=== PATIENT | female | born 1995 | race African-American/Black ===

== ENCOUNTER 2019-09-08 10:30 | Outpatient (RCR) | payer OTHER, SELFPAY ==
--- NOTE | 2019-09-01 10:08 | PT.OIE ---
Current Diagnoses Pelvic and perineal pain (08/26/19) Visit Care Team Role Provider Type Magui Murillo Primary Care Provider Non-Staff Specialty: Medical Address: [address], [place], [address] Email: Cortney Small MD Attending Provider Non-Staff Referring Provider Specialty: Medical Address: [facility] [address], [place], [address] Email: Physical Therapy Initial Evaluation PT-OP-A Visit Information Start: 08/26/19 11:01 Freq: Status: Active Protocol: Document 08/26/19 11:08 [facility] (Rec: 08/26/19 11:37 [facility] [id number]) Out-Patient Physical Therapy Visit Information Visit Information Visit Type Initial Evaluation Visit Start Time 11:15 Visit Stop Time 12:00 Total Visit Minutes 45 Visit Number 1 Evaluation Information Evaluation Date 08/26/19 PT-OP-B Current Condition Start: 08/26/19 11:01 Freq: Status: Active Protocol: Document 08/26/19 11:08 [facility] (Rec: 08/26/19 11:37 [facility] [id number]) Current Condition History of Current Condition Onset Date 3 years ago Current Complaints pelvic and abdominal pain History of Current Condition Pain started in the abdomen and then moved to the pelvic floor. Kary describes the feeling your get when you do sit ups it gets crampy daily, sharp pains come on a few times a day across the front of the pelvis. [place] makes symptoms worse. Kary reports she will have spasms following intercourse. Patient also reports she has nausea as well and wakes up nauseous. She will sometimes throw up one time per week. Some loss of urine with sneezing but not all the time. If she tries to run she will have muscle spasms the next few days in her pelvic floor. She describes frequent need to void and voids almost every hour. She wakes 4 times per night to void. The bladder frequency seems more recent. Pt reports she gets cramps after she voids. Sometimes it is more difficult to void due to cramps. Had a IUD taken out he end of April, she had it in for 6 months. The IUD was in the wrong spot and irritated her tissues. Prior Treatments and Tests laproscopy done last September and everything looked normal. Treatment Goals Patient/Caregiver Goals Would like to be able to return to a more active lifestyle and running two miles without having pain and cramping following. PT-OP-C Subjective Start: 08/26/19 11:01 Freq: Status: Active Protocol: Document 08/26/19 11:08 [facility] (Rec: 09/01/19 10:06 [facility] [id number]) Patient Questionnaires Pelvic Pain and Urgency/Frequency Patient Symptom Scale Pelvic Pain Score 26 OP-PT Pain Assessment Pain Assessment Grid Paper Pain Assessment Grid Completed Yes Location anterior pelvis and pelvic floor Intensity 6 Scale Used Numeric (1 - 10) across the low back Pain Location Details across the low back Intensity 4 Scale Used Numeric (1 - 10) abdominal wall Intensity 4 Scale Used Numeric (1 - 10) PT-OP-I Pelvic Floor Start: 08/26/19 11:01 Freq: Status: Active Protocol: Document 08/26/19 11:08 [facility] (Rec: 09/01/19 10:06 [facility] [id number]) Pelvic Floor Assessment Urine Pelvic Floor Surgery No Urinary Symptoms Urge Sensation,Falling Out Feeling/Heavy Other Urinary Symptoms nocturia Leakage Size Small Leakage Cause Cough Voiding Frequency 20 times per day Nocturia 4 times Pelvic Clock Pelvic Clock 12-3 Guarding,Tenderness Pelvic Clock 3-6 Guarding,Tenderness Pelvic Clock 6-9 Hypertonic,Tenderness Pelvic Clock 9-12 Hypertonic,Tenderness Pelvic Clock Other pt is guarded at rest and when asked to perform a pelvic floor contraction she has difficulty relaxing following, tenderness with all palpations PT-OP-J Posture/Palpation/Skin Start: 08/26/19 11:01 Freq: Status: Active Protocol: Document 08/26/19 11:08 [facility] (Rec: 09/01/19 10:06 [facility] [id number]) Palpation Assessment Location anterior abdominal fascia Palpation Location anterior abdominal fascia Palpation Findings Soft Tissue Tightness,Muscle Guarding Palpation Details myofascial tightness throuhout the anterior abdominal fascia and suprapubic fascia. Decreased bladder visceral mobility PT-OP-K Range of Motion Start: 09/01/19 10:06 Freq: Status: Active Protocol: Document 08/26/19 11:08 [facility] (Rec: 09/01/19 10:08 [facility] [id number]) Lumbar Spine Range of Motion Lumbar Spine Active Extension 10 ROM Limitations Soft Tissue Tightness Comments limitations with lumbar extension in the prone position due to tightness across the abdominal wall PT-OP-Q Treatments Start: 08/26/19 11:01 Freq: Status: Active Protocol: Document 08/26/19 18:25 [facility] (Rec: 08/27/19 18:26 [facility] [id number]) Therapeutic Exercises Supine Exercises 1 Supine Exercise Name modified squat stretch Side bilateral Reps/Minutes hold x 1 minute Prone Exercises 1 Prone Exercise Name cobra stretch Side bilateral Sitting Exercises 1 Sitting Exercise Name Sitting education on sitting on ischial tuberositites with relaxing gluteal PT-OP-T Assessment and Plan Start: 08/26/19 11:01 Freq: Status: Active Protocol: Document 08/26/19 11:08 [facility] (Rec: 09/01/19 10:06 [facility] [id number]) Physical Therapy Assessment Rehab Potential Rehabilitation Potential Excellent Evaluation Complexity Number of Personal Factors/Comorbidities 0 Number of Body Systems Impaired 1-2 Clinical Presentation at Evaluation Stable Impairments Impairments Activity Tolerance,Functional Activities,Pain,Soft Tissue Mobility,Tone Goals Four Impairment pelvic pain with sitting that limits sitting duration to less than 30 min Deck Mate Goal (LTG) Kary is able to increase her sitting tolerance to 60 minutes or greater without increased c/o pain and heaviness in the pelvic floor LTG Duration 8 weeks Three Impairment hypertonicity of the levator ani Short Term Goal (STG) Kary is educated on relaxed awareness of the pelvic floor and is able to tolerate the vaginal sensor for EMG biofeedback down training STG Duration 4 weeks Alf Goal (LTG) Kary is able to relax her pelvic floor to 1-2 uv at rest using EMG biofeedback Two Impairment pelvic and abdominal pain Deck Mate Goal (LTG) Kary is able to reduce pelvic pain from 6/10 to 2-3/ 10 and has reduced complaints of abdominal pain and cramping from 4/10 to 1-2/10 LTG Duration 8 weeks One Impairment urinary urgency and frequency voiding > 20 xms per day and 4 xms at night Short Term Goal (STG) Kary is educated in the urge deference technique and bladder retraining to begin increasing the time between voids STG Duration 3 weeks Alf Goal (LTG) Kary is able to increase her voiding duration to every 2 hours throughout the day and is only waking 1 time per night to void LTG Duration 8 weeks Assessment Summary Assessment Kary presents to physical therapy today with symptoms of pelvic pain and urgency/ frequency to void. She reports voiding greater than 20 times per day and wakes up 4 times per night to void. She describes an achey cramping feeling across her abdominal wall rated 4-5/10 and pelvic pain symptoms rated 6/ 10. With examination today Kary is extremely tight in her abdominal wall and suprapubic region. She is guarded throughout her levator ani with the greatest region of tightness in the illiococcygeus and coccygeus musculature. We started with stretches for the pelvic floor and abdominal wall today . Kary will benefit from PT addressing abdominal wall tightness, suprapubic fascial tightness and pelvic floor tightness. Treatment will include down training for the levator ani using EMG biofeedback, relaxed awareness of the pelvic floor, manual therapy techniques to release tension, yoga for pelvic pain and stretches for the abdominal wall, and diaphragmatic breathing techniques. Physical Therapy Plan Frequency and Duration Frequency of Treatment 1x/Week Duration of Treatment 8 Plan of Care Start Date 08/26/19 Plan of Care End Date 10/21/19 Therapeutic Interventions Therapeutic Interventions Home Exercise Program,Manual Therapy,Neuromuscular Re- education,Patient/Caregiver Education,Self-Care/Home Management,Soft Tissue Mobilization,Therapeutic Exercises Modalities Biofeedback Next Visit Focus/Plan Next Note Type Treatment Note Next Visit Plan Begin EMG biofeedback for down training and relaxed awareness of the pelvic floor musculature
--- NOTE | 2019-09-01 10:09 | PT.OPPOC ---
Physical, Occupational & Speech Therapy At [facility] Current Diagnoses Pelvic and perineal pain (08/26/19) Visit Care Team Role Provider Type Magui Murillo Primary Care Provider Non-Staff Specialty: Medical Address: [facility] [address], [place], [address] Email: Cortney Small MD Attending Provider Non-Staff Referring Provider Specialty: Medical Address: [facility] [place], [address] Email: Plan Of Care PT-OP-T Assessment and Plan Start: 08/26/19 11:01 Freq: Status: Active Protocol: Document 08/26/19 11:08 [facility] (Rec: 09/01/19 10:06 [facility] [id number]) Physical Therapy Assessment Rehab Potential Rehabilitation Potential Excellent Evaluation Complexity Number of Personal Factors/Comorbidities 0 Number of Body Systems Impaired 1-2 Clinical Presentation at Evaluation Stable Impairments Impairments Activity Tolerance,Functional Activities,Pain,Soft Tissue Mobility,Tone Goals Four Impairment pelvic pain with sitting that limits sitting duration to less than 30 min Mcfp Goal (LTG) Kary is able to increase her sitting tolerance to 60 minutes or greater without increased c/o pain and heaviness in the pelvic floor LTG Duration 8 weeks Three Impairment hypertonicity of the levator ani Short Term Goal (STG) Kary is educated on relaxed awareness of the pelvic floor and is able to tolerate the vaginal sensor for EMG biofeedback down training STG Duration 4 weeks Mcfp Goal (LTG) Kary is able to relax her pelvic floor to 1-2 uv at rest using EMG biofeedback Two Impairment pelvic and abdominal pain Mink Slicer Goal (LTG) Kary is able to reduce pelvic pain from 6/10 to 2-3/ 10 and has reduced complaints of abdominal pain and cramping from 4/10 to 1-2/10 LTG Duration 8 weeks One Impairment urinary urgency and frequency voiding > 20 xms per day and 4 xms at night Short Term Goal (STG) Kary is educated in the urge deference technique and bladder retraining to begin increasing the time between voids STG Duration 3 weeks Mink Slicer Goal (LTG) Kary is able to increase her voiding duration to every 2 hours throughout the day and is only waking 1 time per night to void LTG Duration 8 weeks Assessment Summary Assessment Kary presents to physical therapy today with symptoms of pelvic pain and urgency/ frequency to void. She reports voiding greater than 20 times per day and wakes up 4 times per night to void. She describes an achey cramping feeling across her abdominal wall rated 4-5/10 and pelvic pain symptoms rated 6/ 10. With examination today Kary is extremely tight in her abdominal wall and suprapubic region. She is guarded throughout her levator ani with the greatest region of tightness in the illiococcygeus and coccygeus musculature. We started with stretches for the pelvic floor and abdominal wall today . Kary will benefit from PT addressing abdominal wall tightness, suprapubic fascial tightness and pelvic floor tightness. Treatment will include down training for the levator ani using EMG biofeedback, relaxed awareness of the pelvic floor, manual therapy techniques to release tension, yoga for pelvic pain and stretches for the abdominal wall, and diaphragmatic breathing techniques. Physical Therapy Plan Frequency and Duration Frequency of Treatment 1x/Week Duration of Treatment 8 Plan of Care Start Date 08/26/19 Plan of Care End Date 10/21/19 Therapeutic Interventions Therapeutic Interventions Home Exercise Program,Manual Therapy,Neuromuscular Re- education,Patient/Caregiver Education,Self-Care/Home Management,Soft Tissue Mobilization,Therapeutic Exercises Modalities Biofeedback Next Visit Focus/Plan Next Note Type Treatment Note Next Visit Plan Begin EMG biofeedback for down training and relaxed awareness of the pelvic floor musculature Plan of Care Dates Plan of Care Start Date 08/26/19 Plan of Care End Date 10/21/19 Electronically Signed by: Anna Mayberry, PT 09/01/19 1001 Please Sign and Return: I have reviewed this Plan of Care and certify that the skilled therapy services above are required to meet the patient?s needs. Physician Signature Date Printed Name and Credentials Clinical Instructor Signature Printed Name and Credentials
--- NOTE | 2019-09-03 11:13 | PT.OTN ---
Current Diagnoses Pelvic and perineal pain (09/03/19) Physical Therapy Treatment Note PT-OP-A Visit Information Start: 08/26/19 11:01 Freq: Status: Active Protocol: Document 09/03/19 11:05 [facility] (Rec: 09/03/19 11:10 [facility] [id number]) Out-Patient Physical Therapy Visit Information Visit Information Visit Type Treatment Note Visit Start Time 09:45 Visit Stop Time 10:30 Total Visit Minutes 45 Visit Number 2 PT-OP-B Current Condition Start: 08/26/19 11:01 Freq: Status: Active Protocol: Document 08/26/19 11:08 [facility] (Rec: 08/26/19 11:37 [facility] [id number]) Current Condition History of Current Condition Onset Date 3 years ago Current Complaints pelvic and abdominal pain History of Current Condition Pain started in the abdomen and then moved to the pelvic floor. Kary describes the feeling your get when you do sit ups it gets crampy daily, sharp pains come on a few times a day across the front of the pelvis. [place] makes symptoms worse. Kary reports she will have spasms following intercourse. Patient also reports she has nausea as well and wakes up nauseous. She will sometimes throw up one time per week. Some loss of urine with sneezing but not all the time. If she tries to run she will have muscle spasms the next few days in her pelvic floor. She describes frequent need to void and voids almost every hour. She wakes 4 times per night to void. The bladder frequency seems more recent. Pt reports she gets cramps after she voids. Sometimes it is more difficut to void due to cramps. Had a IUD taken out he end of April, she had it in for 6 months. The IUD was in the wrong spot and irritated her tissues. Prior Treatments and Tests laproscopy done last September and everything looked normal. Treatment Goals Patient/Caregiver Goals Would like to be able to return to a more active lifestyle and running two miles without having pain and cramping following. PT-OP-C Subjective Start: 08/26/19 11:01 Freq: Status: Active Protocol: Document 09/03/19 09:54 [facility] (Rec: 09/03/19 10:29 [facility] [id number]) OP-PT Subjective Patient Comments Patient Comments Pt reports she has been cramping alot but she just finished her cycle PT-OP-I Pelvic Floor Start: 08/26/19 11:01 Freq: Status: Active Protocol: Document 08/26/19 11:08 [facility] (Rec: 09/01/19 10:06 [facility] [id number]) Pelvic Floor Assessment Urine Pelvic Floor Surgery No Urinary Symptoms Urge Sensation,Falling Out Feeling/Heavy Other Urinary Symptoms nocturia Leakage Size Small Leakage Cause Cough Voiding Frequency 20 times per day Nocturia 4 times Pelvic Clock Pelvic Clock 12-3 Guarding,Tenderness Pelvic Clock 3-6 Guarding,Tenderness Pelvic Clock 6-9 Hypertonic,Tenderness Pelvic Clock 9-12 Hypertonic,Tenderness Pelvic Clock Other pt is guarded at rest and when asked to perform a pelvic floor contraction she has difficulty relaxing following, tenderness with all palpations PT-OP-J Posture/Palpation/Skin Start: 08/26/19 11:01 Freq: Status: Active Protocol: Document 08/26/19 11:08 [facility] (Rec: 09/01/19 10:06 [facility] [id number]) Palpation Assessment Location anterior abdominal fascia Palpation Location anterior abdominal fascia Palpation Findings Soft Tissue Tightness,Muscle Guarding Palpation Details myofascial tightness throuhout the anterior abdominal fascia and suprapubic fascia. Decreased bladder visceral mobility PT-OP-K Range of Motion Start: 09/01/19 10:06 Freq: Status: Active Protocol: Document 08/26/19 11:08 [facility] (Rec: 09/01/19 10:08 [facility] [id number]) Lumbar Spine Range of Motion Lumbar Spine Active Extension 10 ROM Limitations Soft Tissue Tightness Comments limitations with lumbar extension in the prone position due to tightness across the abdominal wall PT-OP-Q Treatments Start: 08/26/19 11:01 Freq: Status: Active Protocol: Document 09/03/19 09:54 [facility] (Rec: 09/03/19 10:29 [facility] [id number]) Therapeutic Exercises Supine Exercises 3 Supine Exercise Name pelvic floor contract up to 5 sec and relax 10 sec Reps/Minutes x 10 reps Comments resting tone started at 10 uv and reduced to 4 uv following contract relax. 2 Supine Exercise Name diaphragmatic breathing Comments x 4 min 1 Supine Exercise Name modified squat stretch Side bilateral Reps/Minutes hold x 1 minute Prone Exercises 1 Prone Exercise Name cobra stretch Side bilateral Sitting Exercises 1 Sitting Exercise Name Sitting education on sitting on ischial tuberositites with relaxing gluteal Other Exercises 2 Other Exercise Name cat cow 1 Other Exercise Name ember pose Reps/Minutes holding 1-2 min Manual Therapy Treatment Soft Tissue Mobilization 2 Body Location MFR over the suprapubic fascia and bladder Mobilization Type Myofascial Release Body Position Supine Comments MFR tolerated well, very tight in the suprapubic fascia 1 Body Location ILU massage over the colon Comments pt educated in self massage for home PT-OP-T Assessment and Plan Start: 08/26/19 11:01 Freq: Status: Active Protocol: Document 09/03/19 11:05 [facility] (Rec: 09/03/19 11:10 [facility] [id number]) Physical Therapy Assessment Assessment Summary Assessment Kary was able to tolerated MFR over the abdominal wall and suprapubic fascia today. She is guarded in her fascia especially over the bladder. She was educated in diaphragmatic breathing, pelvic floor down training with EMG biofeedback and stretches for her pelvic floor . She tolerated this well Physical Therapy Plan Frequency and Duration Frequency of Treatment 1x/Week Duration of Treatment 8 Plan of Care Start Date 08/26/19 Plan of Care End Date 10/21/19 Therapeutic Interventions Therapeutic Interventions Home Exercise Program,Manual Therapy,Neuromuscular Re- education,Patient/Caregiver Education,Self-Care/Home Management,Soft Tissue Mobilization,Therapeutic Exercises Modalities Biofeedback Next Visit Focus/Plan Next Note Type Treatment Note Next Visit Plan Continue with EMG biofeedback for down training, assess contract relax next visit
--- NOTE | 2019-09-08 10:31 | PT.OTN ---
Current Diagnoses Pelvic and perineal pain (09/08/19) Physical Therapy Treatment Note PT-OP-A Visit Information Start: 08/26/19 11:01 Freq: Status: Active Protocol: Document 09/03/19 11:05 [facility] (Rec: 09/03/19 11:10 [facility] [id number]) Out-Patient Physical Therapy Visit Information Visit Information Visit Type Treatment Note Visit Start Time 09:45 Visit Stop Time 10:30 Total Visit Minutes 45 Visit Number 2 PT-OP-B Current Condition Start: 08/26/19 11:01 Freq: Status: Active Protocol: Document 08/26/19 11:08 [facility] (Rec: 08/26/19 11:37 [facility] [id number]) Current Condition History of Current Condition Onset Date 3 years ago Current Complaints pelvic and abdominal pain History of Current Condition Pain started in the abdomen and then moved to the pelvic floor. Kary describes the feeling your get when you do sit ups it gets crampy daily, sharp pains come on a few times a day across the front of the pelvis. [place] makes symptoms worse. Kary reports she will have spasms following intercourse. Patient also reports she has nausea as well and wakes up nauseous. She will sometimes throw up one time per week. Some loss of urine with sneezing but not all the time. If she tries to run she will have muscle spasms the next few days in her pelvic floor. She describes frequent need to void and voids almost every hour. She wakes 4 times per night to void. The bladder frequency seems more recent. Pt reports she gets cramps after she voids. Sometimes it is more difficut to void due to cramps. Had a IUD taken out he end of April, she had it in for 6 months. The IUD was in the wrong spot and irritated her tissues. Prior Treatments and Tests laproscopy done last September and everything looked normal. Treatment Goals Patient/Caregiver Goals Would like to be able to return to a more active lifestyle and running two miles without having pain and cramping following. PT-OP-C Subjective Start: 08/26/19 11:01 Freq: Status: Active Protocol: Document 09/03/19 09:54 [facility] (Rec: 09/03/19 10:29 [facility] [id number]) OP-PT Subjective Patient Comments Patient Comments Pt reports she has been cramping alot but she just finished her cycle PT-OP-I Pelvic Floor Start: 08/26/19 11:01 Freq: Status: Active Protocol: Document 08/26/19 11:08 [facility] (Rec: 09/01/19 10:06 [facility] [id number]) Pelvic Floor Assessment Urine Pelvic Floor Surgery No Urinary Symptoms Urge Sensation,Falling Out Feeling/Heavy Other Urinary Symptoms nocturia Leakage Size Small Leakage Cause Cough Voiding Frequency 20 times per day Nocturia 4 times Pelvic Clock Pelvic Clock 12-3 Guarding,Tenderness Pelvic Clock 3-6 Guarding,Tenderness Pelvic Clock 6-9 Hypertonic,Tenderness Pelvic Clock 9-12 Hypertonic,Tenderness Pelvic Clock Other pt is guarded at rest and when asked to perform a pelvic floor contraction she has difficulty relaxing following, tenderness with all palpations PT-OP-J Posture/Palpation/Skin Start: 08/26/19 11:01 Freq: Status: Active Protocol: Document 08/26/19 11:08 [facility] (Rec: 09/01/19 10:06 [facility] [id number]) Palpation Assessment Location anterior abdominal fascia Palpation Location anterior abdominal fascia Palpation Findings Soft Tissue Tightness,Muscle Guarding Palpation Details myofascial tightness throuhout the anterior abdominal fascia and suprapubic fascia. Decreased bladder visceral mobility PT-OP-K Range of Motion Start: 09/01/19 10:06 Freq: Status: Active Protocol: Document 08/26/19 11:08 [facility] (Rec: 09/01/19 10:08 [facility] [email or web address]) Lumbar Spine Range of Motion Lumbar Spine Active Extension 10 ROM Limitations Soft Tissue Tightness Comments limitations with lumbar extension in the prone position due to tightness across the abdominal wall PT-OP-Q Treatments Start: 08/26/19 11:01 Freq: Status: Active Protocol: Document 09/03/19 09:54 [facility] (Rec: 09/03/19 10:29 [facility] [id number]) Therapeutic Exercises Supine Exercises 3 Supine Exercise Name pelvic floor contract up to 5 sec and relax 10 sec Reps/Minutes x 10 reps Comments resting tone started at 10 uv and reduced to 4 uv following contract relax. 2 Supine Exercise Name diaphragmatic breathing Comments x 4 min 1 Supine Exercise Name modified squat stretch Side bilateral Reps/Minutes hold x 1 minute Prone Exercises 1 Prone Exercise Name cobra stretch Side bilateral Sitting Exercises 1 Sitting Exercise Name Sitting education on sitting on ischial tuberositites with relaxing gluteal Other Exercises 2 Other Exercise Name cat cow 1 Other Exercise Name ember pose Reps/Minutes holding 1-2 min Manual Therapy Treatment Soft Tissue Mobilization 2 Body Location MFR over the suprapubic fascia and bladder Mobilization Type Myofascial Release Body Position Supine Comments MFR tolerated well, very tight in the suprapubic fascia 1 Body Location ILU massage over the colon Comments pt educated in self massage for home PT-OP-T Assessment and Plan Start: 08/26/19 11:01 Freq: Status: Active Protocol: Document 09/03/19 11:05 [facility] (Rec: 09/03/19 11:10 [facility] [id number]) Physical Therapy Assessment Assessment Summary Assessment Kary was able to tolerated MFR over the abdominal wall and suprapubic fascia today. She is guarded in her fascia especially over the bladder. She was educated in diaphragmatic breathing, pelvic floor down training with EMG biofeedback and stretches for her pelvic floor . She tolerated this well Physical Therapy Plan Frequency and Duration Frequency of Treatment 1x/Week Duration of Treatment 8 Plan of Care Start Date 08/26/19 Plan of Care End Date 10/21/19 Therapeutic Interventions Therapeutic Interventions Home Exercise Program,Manual Therapy,Neuromuscular Re- education,Patient/Caregiver Education,Self-Care/Home Management,Soft Tissue Mobilization,Therapeutic Exercises Modalities Biofeedback Next Visit Focus/Plan Next Note Type Treatment Note Next Visit Plan Continue with EMG biofeedback for down training, assess contract relax next visit
--- NOTE | 2019-09-08 16:36 | PT.OTN ---
Current Diagnoses Pelvic and perineal pain (09/08/19) Physical Therapy Treatment Note PT-OP-A Visit Information Start: 08/26/19 11:01 Freq: Status: Active Protocol: Document 09/08/19 10:31 [facility] (Rec: 09/08/19 11:08 [facility] [id number]) Out-Patient Physical Therapy Visit Information Visit Information Visit Type Treatment Note Visit Start Time 10:30 Visit Stop Time 11:15 Total Visit Minutes 45 Visit Number 3 PT-OP-B Current Condition Start: 08/26/19 11:01 Freq: Status: Active Protocol: Document 08/26/19 11:08 [facility] (Rec: 08/26/19 11:37 [facility] [id number]) Current Condition History of Current Condition Onset Date 3 years ago Current Complaints pelvic and abdominal pain History of Current Condition Pain started in the abdomen and then moved to the pelvic floor. Kary describes the feeling your get when you do sit ups it gets crampy daily, sharp pains come on a few times a day across the front of the pelvis. [place] makes symptoms worse. Kary reports she will have spasms following intercourse. Patient also reports she has nausea as well and wakes up nauseous. She will sometimes throw up one time per week. Some loss of urine with sneezing but not all the time. If she tries to run she will have muscle spasms the next few days in her pelvic floor. She describes frequent need to void and voids almost every hour. She wakes 4 times per night to void. The bladder frequency seems more recent. Pt reports she gets cramps after she voids. Sometimes it is more difficut to void due to cramps. Had a IUD taken out he end of April, she had it in for 6 months. The IUD was in the wrong spot and irritated her tissues. Prior Treatments and Tests laproscopy done last September and everything looked normal. Treatment Goals Patient/Caregiver Goals Would like to be able to return to a more active lifestyle and running two miles without having pain and cramping following. PT-OP-C Subjective Start: 08/26/19 11:01 Freq: Status: Active Protocol: Document 09/08/19 10:31 [facility] (Rec: 09/08/19 11:08 [facility] [id number]) OP-PT Subjective Patient Comments Patient Comments She notes she has been doing painting and gardening and has been having more cramps PT-OP-I Pelvic Floor Start: 08/26/19 11:01 Freq: Status: Active Protocol: Document 08/26/19 11:08 [facility] (Rec: 09/01/19 10:06 [facility] [id number]) Pelvic Floor Assessment Urine Pelvic Floor Surgery No Urinary Symptoms Urge Sensation,Falling Out Feeling/Heavy Other Urinary Symptoms nocturia Leakage Size Small Leakage Cause Cough Voiding Frequency 20 times per day Nocturia 4 times Pelvic Clock Pelvic Clock 12-3 Guarding,Tenderness Pelvic Clock 3-6 Guarding,Tenderness Pelvic Clock 6-9 Hypertonic,Tenderness Pelvic Clock 9-12 Hypertonic,Tenderness Pelvic Clock Other pt is guarded at rest and when asked to perform a pelvic floor contraction she has difficulty relaxing following, tenderness with all palpations PT-OP-J Posture/Palpation/Skin Start: 08/26/19 11:01 Freq: Status: Active Protocol: Document 08/26/19 11:08 [facility] (Rec: 09/01/19 10:06 [facility] [id number]) Palpation Assessment Location anterior abdominal fascia Palpation Location anterior abdominal fascia Palpation Findings Soft Tissue Tightness,Muscle Guarding Palpation Details myofascial tightness throuhout the anterior abdominal fascia and suprapubic fascia. Decreased bladder visceral mobility PT-OP-K Range of Motion Start: 09/01/19 10:06 Freq: Status: Active Protocol: Document 08/26/19 11:08 [facility] (Rec: 09/01/19 10:08 [facility] [id number]) Lumbar Spine Range of Motion Lumbar Spine Active Extension 10 ROM Limitations Soft Tissue Tightness Comments limitations with lumbar extension in the prone position due to tightness across the abdominal wall PT-OP-Q Treatments Start: 08/26/19 11:01 Freq: Status: Active Protocol: Document 09/08/19 10:31 [facility] (Rec: 09/08/19 11:08 [facility] [id number]) Therapeutic Exercises Supine Exercises 4 Supine Exercise Name piriformis stretch Reps/Minutes x 1 min 3 Supine Exercise Name pelvic floor contract up to 5 sec and relax 10 sec Reps/Minutes x 10 reps Comments resting tone started at 10 uv and reduced to 4 uv following contract relax. 2 Supine Exercise Name diaphragmatic breathing Comments x 4 min 1 Supine Exercise Name modified squat stretch Side bilateral Reps/Minutes hold x 1 minute Prone Exercises 1 Prone Exercise Name cobra stretch Side bilateral Sitting Exercises 1 Sitting Exercise Name Sitting education on sitting on ischial tuberositites with relaxing gluteal Other Exercises 3 Other Exercise Name quadraped side bends Reps/Minutes x 10 2 Other Exercise Name cat cow 1 Other Exercise Name ember pose Reps/Minutes holding 1-2 min PT-OP-T Assessment and Plan Start: 08/26/19 11:01 Freq: Status: Active Protocol: Document 09/08/19 16:33 [facility] (Rec: 09/08/19 16:36 [facility] [id number]) Physical Therapy Assessment Assessment Summary Assessment Tone on EMG biofeedback was lower initially today at 1.3 uv. I did back malayna down to 5 reps on the contract relax pelvic floor exercises with the emphasis on relaxation. She was also instructed in increasing her relaxation time. I also added to her home stretches and gave her information about yoga for pelvic pain on line. At this time appointments will be on hold due to our clinic closing with [facility]. Physical Therapy Plan Frequency and Duration Frequency of Treatment 1x/Week Duration of Treatment 8 Plan of Care Start Date 08/26/19 Plan of Care End Date 10/21/19 Therapeutic Interventions Therapeutic Interventions Home Exercise Program,Manual Therapy,Neuromuscular Re- education,Patient/Caregiver Education,Self-Care/Home Management,Soft Tissue Mobilization,Therapeutic Exercises Modalities Biofeedback Hold Physical Therapy Reason For Hold HOLD PT UNTIL OUR CLINIC IS BACK OPEN Next Visit Focus/Plan Next Note Type Treatment Note Next Visit Plan Continue with EMG biofeedback for down training, assess contract relax next visit
--- NOTE | 2020-02-22 14:46 | PT.OPDS ---
Current Diagnoses Pelvic and perineal pain (09/08/19) Visit Care Team Role Provider Type Magui Murillo Primary Care Provider Non-Staff Specialty: Medical Address: [address], [place], [address] Email: Cortney Small MD Attending Provider Non-Staff Referring Provider Specialty: Medical Address: [facility] [address], [place], [address] Email: Visit Number Visit Number 3 Discharge Summary PT-OP-B Current Condition Start: 08/26/19 11:01 Freq: Status: Active Protocol: Document 08/26/19 11:08 [facility] (Rec: 08/26/19 11:37 [facility] [id number]) Current Condition History of Current Condition Onset Date 3 years ago Current Complaints pelvic and abdominal pain History of Current Condition Pain started in the abdomen and then moved to the pelvic floor. Kary describes the feeling your get when you do sit ups it gets crampy daily, sharp pains come on a few times a day across the front of the pelvis. [place] makes symptoms worse. Kary reports she will have spasms following intercourse. Patient also reports she has nausea as well and wakes up nauseous. She will sometimes throw up one time per week. Some loss of urine with sneezing but not all the time. If she tries to run she will have muscle spasms the next few days in her pelvic floor. She describes frequent need to void and voids almost every hour. She wakes 4 times per night to void. The bladder frequency seems more recent. Pt reports she gets cramps after she voids. Sometimes it is more difficut to void due to cramps. Had a IUD taken out he end of April, she had it in for 6 months. The IUD was in the wrong spot and irritated her tissues. Prior Treatments and Tests laproscopy done last September and everything looked normal. Treatment Goals Patient/Caregiver Goals Would like to be able to return to a more active lifestyle and running two miles without having pain and cramping following. PT-OP-C Subjective Start: 08/26/19 11:01 Freq: Status: Active Protocol: Document 03/24/20 10:31 [facility] (Rec: 09/08/19 11:08 [facility] [id number]) OP-PT Subjective Patient Comments Patient Comments She notes she has been doing painting and gardening and has been having more cramps PT-OP-I Pelvic Floor Start: 08/26/19 11:01 Freq: Status: Active Protocol: Document 08/26/19 11:08 [facility] (Rec: 09/01/19 10:06 [facility] [id number]) Pelvic Floor Assessment Urine Pelvic Floor Surgery No Urinary Symptoms Urge Sensation,Falling Out Feeling/Heavy Other Urinary Symptoms nocturia Leakage Size Small Leakage Cause Cough Voiding Frequency 20 times per day Nocturia 4 times Pelvic Clock Pelvic Clock 12-3 Guarding,Tenderness Pelvic Clock 3-6 Guarding,Tenderness Pelvic Clock 6-9 Hypertonic,Tenderness Pelvic Clock 9-12 Hypertonic,Tenderness Pelvic Clock Other pt is guarded at rest and when asked to perform a pelvic floor contraction she has difficulty relaxing following, tenderness with all palpations PT-OP-J Posture/Palpation/Skin Start: 08/26/19 11:01 Freq: Status: Active Protocol: Document 08/26/19 11:08 [facility] (Rec: 09/01/19 10:06 [facility] [email or web address]) Palpation Assessment Location anterior abdominal fascia Palpation Location anterior abdominal fascia Palpation Findings Soft Tissue Tightness,Muscle Guarding Palpation Details myofascial tightness throuhout the anterior abdominal fascia and suprapubic fascia. Decreased bladder visceral mobility PT-OP-K Range of Motion Start: 09/01/19 10:06 Freq: Status: Active Protocol: Document 08/26/19 11:08 [facility] (Rec: 09/01/19 10:08 [facility] [id number]) Lumbar Spine Range of Motion Lumbar Spine Active Extension 10 ROM Limitations Soft Tissue Tightness Comments limitations with lumbar extension in the prone position due to tightness across the abdominal wall PT-OP-T Assessment and Plan Start: 08/26/19 11:01 Freq: Status: Active Protocol: Document 02/22/20 14:44 [facility] (Rec: 02/22/20 14:46 [facility] [id number]) Physical Therapy Assessment Assessment Summary Assessment Kary has not been seen since 09/08/19 due to the covid 19 pandemic. She has not returned calls to resume PT. She will be discharged at this time to [facility] Physical Therapy Plan Discharge Physical Therapy Discharge Reasons No Longer Attending PT
== END 2020-02-23 11:33 ==
LOC: PHYS 10:30
PROVIDERS: PCP Student in an Organized Health Care Education/Training Program; Referring Provider Obstetrics & Gynecology; Visit Provider Obstetrics & Gynecology
DX: R10.2 Pelvic and perineal pain (principal)
CPT/HCPCS: 97110; 97140; 97161